=== PATIENT | male | born 1955 | race Caucasian/White ===

== ENCOUNTER → 2023-12-02 08:28 | Outpatient (REF) | payer OTHER, SELFPAY | LOC: RAD 08:28 | PROVIDERS: ATTENDING PHYSICIAN Family Medicine | DX: R13.10 Dysphagia, unspecified (principal) | CPT/HCPCS: 74246 ==

== ENCOUNTER → 2023-12-19 07:15 | Outpatient (REF) | payer OTHER, SELFPAY | LOC: RAD 07:15 | PROVIDERS: ATTENDING PHYSICIAN Physician Assistant Medical; FAMILY PHYSICIAN Family Medicine | DX: R10.9 Unspecified abdominal pain (principal) | CPT/HCPCS: 74176 ==

== ENCOUNTER → 2024-06-18 09:38 | Outpatient (REF) | payer OTHER, SELFPAY | LOC: RCS 09:38 | PROVIDERS: ATTENDING PHYSICIAN Family Medicine | DX: I49.9 Cardiac arrhythmia, unspecified (principal) | CPT/HCPCS: 93005 ==

== ENCOUNTER → 2024-07-06 07:24 | Outpatient (REF) | payer OTHER, SELFPAY | LOC: RAD 07:24 | PROVIDERS: ATTENDING PHYSICIAN Family Medicine; REFERRING PHYSICIAN Surgery | DX: R10.31 Right lower quadrant pain (principal); I49.9 Cardiac arrhythmia, unspecified | CPT/HCPCS: 76882 ==

== ENCOUNTER 2024-09-12 11:34 | Emergency (ER) | payer OTHER, SELFPAY ==
[2024-09-12 11:35] VITALS: BP 169/81
--- NOTE | 2024-09-12 12:49 | ED.SKININJ ---
HPI-Injury
General
Chief Complaint: Skin Surface Trauma
Source: patient
Exam Limitations: none
Time Seen by Provider: 09/12/24 12:29
Nursing documentation reviewed up to this point in time: agreed with
History of Present Illness-Injury
Is this injury a work related problem?: No
Is pt an associate of [facility]?: No
Initial Injury comments:
68-year-old male limited past medical history is cutting wood chainsaw kicked back and struck his left knee approximately 4 inch laceration above his patella he walked on it, bleeding is slowed down, on no blood thinners last tetanus was greater
than 10 years ago, incident occurred about an hour ago, minimal pain,
Past History
Past History
ED Past Medical History: None
ED Past Surgical History: Orthopedic (Fingertip amputation)
Social History
Tobacco: Non-smoker
Alcohol: None
Drug: None
Personal:
Living: with family
Employment: Employed
Review of Systems
Review of Systems
All Other Systems: Not applicable
Musculoskeletal: Reports no symptoms
Neurological: Reports no symptoms
Phy Exam
Physical Exam
Physical Exam:
Physical Exam
General: no apparent distress, not acutely ill
Neck: No jaundice
Heart: s1/s2 regular rate and rhythm, no murmur. equal radial pulses.
Lungs: no acute respiratory distress. clear bilaterally
Neuro: alert and oriented. no focal neurological deficits
Skin: no rash
Psychiatric: well kept. interactive and cooperative
Extremities: 4 inch left knee full-thickness laceration down to quadriceps tendon full range of motion passive and active visualize tendon appears intact
Course
Orders/Labs/Results
Orders:
Orders
09/12/24 12:35
Knee, Left 1 or 2 Views [CR Knee - Left 1 Or 2 Views] Urgent
Comment:
Reason For Exam: trauma, laceration by chainsaw
09/12/24 12:39
Cephalexin Monohydrate [Keflex] 500 mg PO NOW STA
Tetanus/Diphth/Acelpertussis [Adacel] 0.5 ml IM .ONCE ONE
09/12/24 12:40
Wound Dressing- Treatment ONCE
Location of Wound: knee
Vital Signs
Initial and Last Documented VS:
Initial Vital Signs
Temp Pulse Resp BP Pulse Ox
97.4 F 84 16 169/81 98
09/12/24 11:35 09/12/24 11:35 09/12/24 11:35 09/12/24 11:35 09/12/24 11:35
Last Documented Vital Signs
Temp Pulse Resp BP Pulse Ox
97.4 F 84 16 169/81 98
09/12/24 11:35 09/12/24 11:35 09/12/24 11:35 09/12/24 11:35 09/12/24 11:35
Procedures
Laceration Closure
Left Proximal Knee:
Status of Wound: clean
Size of Wound in cm: 5
Description of Wound Edges: sharp and other (Lateral portion macerated)
Preparation: cleaned with saline
Anesthesia: 1% Lidocaine with epi and Marcaine
Revision/Debridement: routine- no revision
Wound exploration: explored to base- no FB
Type of Closure: single layer closure
Skin Closure Material: 3-0 nylon
Number of sutures: 5
Additional information:
Wound copiously irrigated no foreign body seen, wound closed
MDM/Problems Addressed
Differential Diagnosis Includes:
Laceration tendon injury occult trauma foreign body
MDM/Problems Addressed:
Chainsaw to the left
*Critical Care Note
Total Time (30-74mins, 75-104mins- exclusive of procedures): Not Applicable
Update Note
Update Note:
Update by history and physical wound does not appear to involve the joint capsule nor the quadriceps tendon
Will check x-ray, update his tetanus, irrigate the wound, close
ED Attending Note
-
Portions of this chart may have been created with voice recognition software.� Occasional wrong word or��sound alike� substitutions may have occurred due to the inherent limitations of voice recognition software.
Discharge Plan
Departure
Patient Disposition: Home (Routine Discharge)
Date of Disposition: 09/12/24
Time of Disposition: 13:23
Patient with high blood pressure during this ER visit?: No
Discharge Problem:
Laceration
Instructions: Laceration Repair With Stitches (DC), Wound Care (DC)
Prescriptions:
No Action
multivitamin 1 EACH tablet
1 ea PO DAILY
losartan 50 MG tablet
100 mg PO DAILY
amlodipine [Norvasc] 10 MG tablet
10 mg PO DAILY
naproxen sodium 550 MG tablet
550 mg PO BID
hydrochlorothiazide 25 MG tablet
25 mg PO DAILY
glucosamine HCl 1,500 MG tablet
1,500 mg PO BID
gabapentin 300 MG capsule
300 mg PO DIRECTED Qty: 60 0RF
Rx Instructions:
300mg bid x1 day, 300mg tid x 1 day, 600mg bid x 1 day, then 600mg tid continuous.
Referrals:
Naman Freitas DO [[facility]] - Follow up in 1 week
Activity Restrictions/Additional Instructions:
Limit your activity for the next few days, keep your wound covered, antibiotics as prescribed follow-up with your family doctor in 10 to 14 days for suture removal
Return to the ER if any signs of infection
Interventions
Interventions:
*Risk Screen - Suicide Last Done: 09/12/24 11:35
*Neglect/Abuse Screening Last Done: 09/12/24 11:35
Discharge Date and Time
Print Language: CITIZEN [place]
[2024-09-12] MEDS: KEFLEX 500 MG PO (13:32)
[2024-09-12] MEDS: ADACEL 0.5 ML IM (13:32)
[2024-09-12 13:48] VITALS: BP 151/78
== END 2024-09-12 13:49 | disposition home or self-care (01) ==
LOC: EMR 11:34
PROVIDERS: EMERGENCY PHYSICIAN Emergency Medicine; FAMILY PHYSICIAN Family Medicine
DX: S81.012A Laceration without foreign body, left knee, initial encounter (principal); W29.3XXA Contact with powered garden and outdoor hand tools and machinery, initial encounter; Z23 Encounter for immunization
CPT/HCPCS: 12002; 90471; 99283; 73560; 90715

== ENCOUNTER 2024-10-11 06:17 | Day surgery (SDC) | payer OTHER, SELFPAY ==
[2024-10-11 09:03] VITALS: BMI 26.0
[2024-10-11 09:04] VITALS: BP 149/89
[2024-10-11] MEDS: TYLENOL 1000 MG PO (09:18)
[2024-10-11] MEDS: NORMOSOL-R/PLASMALYTE-A 1000 IV (09:50)
--- NOTE | 2024-10-11 12:17 | PTCARENOTE ---
Patient checked on multiple times. Patients arrival time was 0900 and still waiting at 1215. Patient brought to the bathroom multiple times and offered warm blankets ect..
--- NOTE | 2024-10-11 14:28 | W.IMMPOSTOP ---
Surgical Immed Post Op Note
-
Primary Surgeon: Jimmie
Assisting: Carin DONOVAN
Pre-op Diagnosis: Right inguinal hernia
Post-op Diagnosis: Same
Procedure Performed: Robot assisted laparoscopic repair right inguinal hernia
Anesthesia Type: GETA
Specimen / Cultures: None
Estimated Blood Loss: 5cc
Complications: None immediate
Operative Findings: Direct type defect but lateral to the epigastrics, pseudosac everted and secured to Trace's, inferior epigastrics sacrificed; XL MID 3D Max
[2024-10-11 14:30] VITALS: BP 149/89; BP 156/86
--- NOTE | 2024-10-11 14:31 | OR.RPT ---
Operative Report
Operative Report
Primary Surgeon: Jimmie
Assisting: Carin DONOVAN
Pre-op Diagnosis: Right inguinal hernia
Post-op Diagnosis: Same
Procedure Performed: Robot assisted laparoscopic repair right inguinal hernia
Anesthesia Type: GETA
Specimen / Cultures: None
Estimated Blood Loss: 5cc
Complications: None immediate
Operative Findings: Direct type defect but lateral to the epigastrics, pseudosac everted and secured to Trace's, inferior epigastrics sacrificed; XL MID 3D Max
Date of surgery: 10/11/24
Indications:� This 69M developed a symptomatic right inguinal hernia. Robot assisted laparoscopic repair of left inguinal hernias was planned.
Description of procedure:� The patient was taken to the operating room and positioned into supine position. The patient�s abdomen was prepped and draped in standard sterile fashion. Carias placed. A time-out was completed verifying correct patient,
procedure, site, positioning, and implants and special equipment prior to beginning this procedure.
A stab incision was made in the left upper quadrant, a Veress needle was inserted and proper position was confirmed by aspiration and saline drop test. Following this, pneumoperitoneum was created with insufflation of carbon dioxide to 12 mmHg. Then
a 8mm robotic trocar was inserted above and to the left of the umbilicus. A laparoscope was inserted and the area of initial trocar entry and Veress needle placement were both inspected and no injuries were found. Two 8mm trocars were then placed
lateral to the rectus sheath under direct visualization.
Both inguinal regions were inspected and the median umbilical ligament, medial umbilical ligament, and lateral umbilical fold were identified. Attention was turned to the right groin. The peritoneum was incised transversely above the defect and a
flap was developed in the caudad direction. Trace�s ligament was identified ultimately dissected to its junction with the iliac vein and the space of Retzius was developed bluntly.� Some scar tissue was encountered in this space but it was
manageable. The dissection was continued inferiorly to the iliopubic tract, with care taken to avoid injury to the femoral branch of the genitofemoral nerve and the lateral femoral cutaneous nerve. The cord structures were parietalized.
The direct space was inspected and a hernia defect was identified and reduced by gentle traction, the pseudosac was everted and secured to Trace's ligament with 2-0 vicryl suture. This was lateral to the epigastrics and the epigastrics were
sacrificed, controlled with ties and bipolar cautery. The femoral space was inspected no defect was identified. The indirect space was inspected and no hernia was identified. The canal was inspected and no cord lipoma was identified.
Extra large right MID 3D max mesh was passed through a trocar. The mesh was placed into the preperitoneal space and moved into position to lay flat and completely cover the direct, indirect, and femoral spaces with overlap at the midline. The mesh
was secured into place using 2-0 vicryl suture to Trace�s ligament medially. Care was taken to avoid the inferolateral triangles containing the iliac vessels and genital nerves. The peritoneal flap was closed over the mesh and secured with 2-0
monocryl stratafix suture in similar positions of safety. A 14g angiocath was used to decompress the preperitoneal space revealing good seal and all mesh in good position without folding or curling.
After ensuring adequate hemostasis, the trocars were removed and the pneumoperitoneum allowed to escape. The trocar incisions were closed at the skin level using 4-0 monocryl and topical skin adhesive. All counts were correct and the patient
tolerated the procedure well and was taken to the postanesthesia care unit in stable condition.
The assistance of Carin was required due to the complexity of the procedure. During the procedure she assisted with retraction, resection, and closure of the wound.
[2024-10-11 14:45] VITALS: BP 144/90
[2024-10-11 15:00] VITALS: BP 142/93
[2024-10-11 15:15] VITALS: BP 157/93
[2024-10-11] MEDS: TYLENOL 650 MG PO (15:38)
[2024-10-11 15:50] VITALS: BP 152/95
== END 2024-10-11 15:50 | disposition home or self-care (01) ==
LOC: SDS 06:17
PROVIDERS: ATTENDING PHYSICIAN Surgery
DX: K40.90 Unilateral inguinal hernia, without obstruction or gangrene, not specified as recurrent (principal)
CPT/HCPCS: 49650; C1781